=== PATIENT | male | born 1965 | race Caucasian/White ===

== ENCOUNTER 2021-09-18 15:02 | Inpatient (IN) | payer MEDICARE ==
[2021-09-18 15:54] LABS: #Basophils 0.1 10x3/uL (0.0-0.2); #Eosinphils 0.2 10x3/uL (0.0-0.5); #Monocytes 0.7 10x3/uL (0.0-1.1); #Neutrophils 7.8 10x3/uL (1.5-8.4); %Basophils 0.5 % (0.0-2.0); %Eosinophils 1.5 % (0.0-6.0); %Lymphocytes 16.4 % (18.0-47.0); %Monocytes 6.7 % (0.0-10.0); %Neutrophils 74.4 % (40.0-75.0); Hemoglobin 10.1 g/dL (13.5-17.5); Mean Corpuscular HGB CONC 31.2 g/dL (32.0-36.0); Mean Corpuscular Hemoglobin 26.4 pg (27.0-33.0); Mean Corpuscular Volume 84.8 fl (81.2-95.1); Mean Platelet Volume 9.3 fl (7.4-10.4); Platelet Count 307 10x3/uL (150-450); RBC Distribution Width 14.1 % (11.5-14.5); Red Blood Cell (RBC) Count 3.82 10x6/uL (4.32-5.72); White Blood Cell (WBC) Count 10.5 10x3/uL (3.5-10.5)
[2021-09-18 16:05] LABS: PTT 27.1 sec (22.0-33.0)
[2021-09-18 16:08] LABS: ALT (SGPT) 12 U/L (8-55); AST (SGOT) 10 U/L (5-34); Albumin 3.2 g/dL (3.5-5.0); Alkaline Phosphatase 84 U/L (40-110); Anion Gap 13 mmol/L (10-20); BUN (Urea Nitrogen) 31 mg/dL (8.4-25.7); Bilirubin, Total 0.4 mg/dL (0.2-1.2); Calc. Creatinine Clearance 0 mL/min (70-130); Carbon Dioxide 30 mmol/L (22-29); Chloride 94 mmol/L (98-107); Globulin 3.9 g/dL (2.4-3.5); Glucose 338 mg/dL (70-105); Potassium 4.5 mmol/L (3.5-5.1); Protein, Total 7.1 g/dL (6.0-8.3); Sodium 132 mmol/L (136-145)
[2021-09-18] MEDS ORDERED: Cefepime 2 GM VIAL ONE (18:58)
[2021-09-18] MEDS ORDERED: Acetaminophen 500 MG TAB ONE (18:58)
[2021-09-18] MEDS ORDERED: Dextrose 5% in Water 1,000 ML IV PRN (20:46)
[2021-09-18] MEDS ORDERED: Zolpidem Tartrate 5 MG TAB PO PRN (20:46)
[2021-09-18] MEDS ORDERED: Senokot S 8.6-50 MG TAB PO PRN (20:46)
[2021-09-18] MEDS ORDERED: Guaifenesin DM 100-10/5 ML UDCUP PO PRN (20:46)
[2021-09-18] MEDS ORDERED: Calcium Carbonate 500 MG ChewTAB PO PRN (20:46)
[2021-09-18] MEDS ORDERED: Dextrose 50% Abboject 50 ML SYRINGE SLOW IVP PRN (20:46)
[2021-09-18] MEDS ORDERED: Famotidine 20 MG TAB PO SCH (21:00)
[2021-09-18 23:44] VITALS: BMI 52.4
[2021-09-18 23:51] LABS: SARS-CoV-2 NAA Rapid Test Not Detected (NotDetected)
[2021-09-18] MEDS: HumaLOG 300 UNITS/3 ML VIAL SC PRN (23:56)
[2021-09-18] MEDS: Atorvastatin Calcium 40 MG TAB PO SCH (23:56)
[2021-09-18] MEDS: Gabapentin 300 MG CAP PO SCH (23:57)
[2021-09-18] MEDS: hydrALAZINE 10 MG TAB PO SCH (23:58)
[2021-09-18] MEDS: Loratadine 10 MG TAB PO SCH (23:58)
[2021-09-19] MEDS: Ondansetron PF 4 MG/2 ML Vial IVP PRN ×2 (00:23→17:34)
[2021-09-19] MEDS: traZODone HCl 50 MG TAB PO SCH ×2 (01:50→21:55)
[2021-09-19] MEDS: HumaLOG 300 UNITS/3 ML VIAL SC PRN ×3 (05:54→17:45)
[2021-09-19 06:31] LABS: #Basophils 0.1 10x3/uL (0.0-0.2); #Eosinphils 0.2 10x3/uL (0.0-0.5); #Monocytes 0.7 10x3/uL (0.0-1.1); #Neutrophils 6.1 10x3/uL (1.5-8.4); %Basophils 0.6 % (0.0-2.0); %Eosinophils 2.7 % (0.0-6.0); %Lymphocytes 17.3 % (18.0-47.0); %Monocytes 8.1 % (0.0-10.0); %Neutrophils 70.7 % (40.0-75.0); Hemoglobin 9.3 g/dL (13.5-17.5); Mean Corpuscular HGB CONC 30.7 g/dL (32.0-36.0); Mean Corpuscular Hemoglobin 26.4 pg (27.0-33.0); Mean Corpuscular Volume 86.1 fl (81.2-95.1); Mean Platelet Volume 9.6 fl (7.4-10.4); Platelet Count 295 10x3/uL (150-450); RBC Distribution Width 14.3 % (11.5-14.5); Red Blood Cell (RBC) Count 3.52 10x6/uL (4.32-5.72); White Blood Cell (WBC) Count 8.6 10x3/uL (3.5-10.5)
[2021-09-19 06:50] LABS: Anion Gap 13 mmol/L (10-20); BUN (Urea Nitrogen) 28 mg/dL (8.4-25.7); CRP (Inflammatory) 12.63 mg/dL (= or < 0.5); Calc. Creatinine Clearance 112 mL/min (70-130); Calcium 8.7 mg/dL (7.8-10.44); Carbon Dioxide 27 mmol/L (22-29); Chloride 99 mmol/L (98-107); Glucose 250 mg/dL (70-105); Potassium 4.4 mmol/L (3.5-5.1); Sodium 135 mmol/L (136-145)
[2021-09-19] MEDS ORDERED: Enoxaparin Sodium 30 MG/0.3 ML SYRINGE SC SCH (09:00)
[2021-09-19] MEDS ORDERED: Enoxaparin Sodium 40 MG/0.4 ML SYRINGE SC SCH (09:45)
[2021-09-19] MEDS: Aspirin 81 mg Enteric Coated Tablet PO SCH (10:19)
[2021-09-19] MEDS: Gabapentin 300 MG CAP PO SCH ×3 (10:19→21:55)
[2021-09-19] MEDS: Furosemide 40 MG TAB PO SCH (10:19)
[2021-09-19] MEDS: hydrALAZINE 10 MG TAB PO SCH ×3 (10:19→21:54)
[2021-09-19] MEDS: Lantus 1000 UNITS/10 ML VIAL SC SCH (10:21)
[2021-09-19 12:42] LABS: Hemoglobin A1c 9.8 % (4.0-6.0)
[2021-09-19] MEDS ORDERED: Sodium Chloride 0.9% 1,000 ML IV SCH (17:15)
[2021-09-19] MEDS ORDERED: Communication Order-Pharmacy FS SCH (17:15)
[2021-09-19] MEDS: Cefepime 2 GM in Sodium Chloride 0.9% 100 ML IVPB SCH ×2 (17:34→17:40)
[2021-09-19] MEDS: VANCOMYCIN 2 GRAM/400 ML BAG 2 GM in Premix Bag 1 BAG IVPB SCH (17:34)
[2021-09-19] MEDS: Atorvastatin Calcium 40 MG TAB PO SCH (21:54)
[2021-09-19] MEDS: Loratadine 10 MG TAB PO SCH (21:55)
[2021-09-19] MEDS: Famotidine 20 MG TAB PO SCH (21:56)
[2021-09-20 04:36] LABS: Anion Gap 10 mmol/L (10-20); BUN (Urea Nitrogen) 34 mg/dL (8.4-25.7); Calc. Creatinine Clearance 99 mL/min (70-130); Calcium 8.4 mg/dL (7.8-10.44); Carbon Dioxide 29 mmol/L (22-29); Cardiac Risk 5.4 (Less than 4.5); Chloride 100 mmol/L (98-107); Cholesterol 114 mg/dl (< 200 Desired); Glucose 242 mg/dL (70-105); HDL Cholesterol 21 mg/dL (>60 Neg Risk); LDL Cholesterol, Calculated 64 mg/dL; Phosphorus 3.4 mg/dL (2.3-4.7); Potassium 4.4 mmol/L (3.5-5.1); Sodium 135 mmol/L (136-145); Triglycerides 145 mg/dL (Less than 150)
[2021-09-20 04:41] LABS: #Eosinphils 0.3 10x3/uL (0.0-0.5); #Monocytes 0.9 10x3/uL (0.0-1.1); #Neutrophils 4.6 10x3/uL (1.5-8.4); %Basophils 0.5 % (0.0-2.0); %Monocytes 10.3 % (0.0-10.0); %Neutrophils 56.5 % (40.0-75.0); Hemoglobin 8.8 g/dL (13.5-17.5); Mean Corpuscular HGB CONC 30.4 g/dL (32.0-36.0); Mean Corpuscular Hemoglobin 26.5 pg (27.0-33.0); Mean Platelet Volume 9.5 fl (7.4-10.4); Platelet Count 263 10x3/uL (150-450); RBC Distribution Width 14.6 % (11.5-14.5); Red Blood Cell (RBC) Count 3.32 10x6/uL (4.32-5.72); White Blood Cell (WBC) Count 8.2 10x3/uL (3.5-10.5)
[2021-09-20] MEDS: hydrALAZINE 10 MG TAB PO SCH ×3 (06:32→21:59)
[2021-09-20] MEDS: Famotidine 20 MG TAB PO SCH ×2 (06:33→21:59)
[2021-09-20] MEDS: Gabapentin 300 MG CAP PO SCH ×3 (06:33→21:58)
[2021-09-20] MEDS: Aspirin 81 mg Enteric Coated Tablet PO SCH (06:33)
[2021-09-20] MEDS: Sodium Chloride 0.9% 1,000 ML IV SCH ×2 (07:42→09:25)
[2021-09-20] MEDS ORDERED: Enoxaparin Sodium 40 MG/0.4 ML SYRINGE SC SCH (09:00)
[2021-09-20] MEDS: Furosemide 40 MG TAB PO SCH (09:25)
[2021-09-20] MEDS: Lantus 1000 UNITS/10 ML VIAL SC SCH (09:25)
[2021-09-20] MEDS ORDERED: Nitroglycerin 50 MG/250 ML BOT 0 ML ONE (11:58)
[2021-09-20] MEDS ORDERED: Heparin 10,000 UNITS/ 10 ML VIAL ONE (11:58)
[2021-09-20] MEDS ORDERED: Bivalirudin 250 MG VIAL ONE ×2 (11:59→12:07)
[2021-09-20] MEDS ORDERED: Verapamil 5 MG/2 ML VIAL ONE (11:59)
[2021-09-20] MEDS ORDERED: Adenosine 6 MG/2 ML VIAL ONE (11:59)
[2021-09-20] MEDS ORDERED: Lidocaine 1% PF 5 ML VIAL ONE (12:01)
[2021-09-20] MEDS ORDERED: Midazolam HCl 5 mg/5 ml Vial ONE (12:02)
[2021-09-20] MEDS ORDERED: Sterile Water 0 ML ONE (12:02)
[2021-09-20] MEDS ORDERED: Sodium Chloride 0.9% 1,000 ML ONE (12:03)
[2021-09-20] MEDS ORDERED: Fentanyl 100 MCG/2 ML VIAL ONE (12:03)
[2021-09-20] MEDS ORDERED: Lidocaine 1% (PF) 30 ML VIAL ONE (13:28)
[2021-09-20] MEDS ORDERED: Sodium Chloride 0.9% 1,000 ML IV SCH (14:30)
[2021-09-20] MEDS: VANCOMYCIN 2 GRAM/400 ML BAG 2 GM in Premix Bag 1 BAG IVPB SCH (17:14)
[2021-09-20] MEDS: Cefepime 2 GM in Sodium Chloride 0.9% 100 ML IVPB SCH (17:14)
[2021-09-20 17:33] LABS: Vancomycin, Trough 18.3 ug/mL
[2021-09-20] MEDS: traZODone HCl 50 MG TAB PO SCH (21:58)
[2021-09-20] MEDS: Loratadine 10 MG TAB PO SCH (22:00)
[2021-09-20] MEDS: Atorvastatin Calcium 40 MG TAB PO SCH (22:00)
[2021-09-20] MEDS: HumaLOG 300 UNITS/3 ML VIAL SC PRN (22:00)
[2021-09-21 05:49] LABS: Anion Gap 12 mmol/L (10-20); BUN (Urea Nitrogen) 31 mg/dL (8.4-25.7); Calc. Creatinine Clearance 107 mL/min (70-130); Calcium 8.5 mg/dL (7.8-10.44); Carbon Dioxide 24 mmol/L (22-29); Chloride 104 mmol/L (98-107); Glucose 200 mg/dL (70-105); Phosphorus 2.9 mg/dL (2.3-4.7); Potassium 4.3 mmol/L (3.5-5.1); Sodium 136 mmol/L (136-145)
[2021-09-21 05:56] LABS: #Basophils 0.1 10x3/uL (0.0-0.2); #Eosinphils 0.3 10x3/uL (0.0-0.5); #Monocytes 0.7 10x3/uL (0.0-1.1); #Neutrophils 5.2 10x3/uL (1.5-8.4); %Basophils 0.6 % (0.0-2.0); %Eosinophils 3.3 % (0.0-6.0); %Lymphocytes 24.5 % (18.0-47.0); %Monocytes 7.9 % (0.0-10.0); %Neutrophils 63.1 % (40.0-75.0); Hemoglobin 9.1 g/dL (13.5-17.5); Mean Corpuscular HGB CONC 30.6 g/dL (32.0-36.0); Mean Corpuscular Hemoglobin 26.4 pg (27.0-33.0); Mean Corpuscular Volume 86.1 fl (81.2-95.1); Mean Platelet Volume 9.4 fl (7.4-10.4); Platelet Count 273 10x3/uL (150-450); RBC Distribution Width 14.6 % (11.5-14.5); Red Blood Cell (RBC) Count 3.45 10x6/uL (4.32-5.72); White Blood Cell (WBC) Count 8.2 10x3/uL (3.5-10.5)
[2021-09-21] MEDS ORDERED: Neomycin-Polymyxin 1 ML AMP ONE ×2 (07:18→08:01)
[2021-09-21] MEDS ORDERED: Bupivacaine PF 0.5% 30 ML VIAL ONE (07:18)
[2021-09-21] MEDS ORDERED: Midazolam HCl 2 mg/2 ml Vial ONE (07:47)
[2021-09-21] MEDS ORDERED: Fentanyl 100 MCG/2 ML VIAL ONE (07:47)
[2021-09-21] MEDS: hydrALAZINE 10 MG TAB PO SCH ×3 (09:28→20:23)
[2021-09-21] MEDS: Famotidine 20 MG TAB PO SCH ×2 (09:28→20:23)
[2021-09-21] MEDS: Gabapentin 300 MG CAP PO SCH ×3 (09:28→20:22)
[2021-09-21] MEDS: Furosemide 40 MG TAB PO SCH (09:28)
[2021-09-21] MEDS: Lantus 1000 UNITS/10 ML VIAL SC SCH ×2 (09:29→20:24)
[2021-09-21] MEDS: HYDROcodone/Acetaminophen 5/325 mg Tablet PO PRN ×2 (10:06→23:13)
[2021-09-21] MEDS ORDERED: Cefepime 2 GM VIAL ONE (18:12)
[2021-09-21] MEDS: Cefepime 2 GM in Sodium Chloride 0.9% 100 ML IVPB SCH (18:13)
[2021-09-21] MEDS: Ondansetron PF 4 MG/2 ML Vial IVP PRN (18:13)
[2021-09-21] MEDS: HumaLOG 300 UNITS/3 ML VIAL SC PRN ×2 (18:42→20:25)
[2021-09-21] MEDS: Atorvastatin Calcium 40 MG TAB PO SCH (20:23)
[2021-09-21] MEDS: Loratadine 10 MG TAB PO SCH (20:24)
[2021-09-21] MEDS: traZODone HCl 50 MG TAB PO SCH (20:27)
[2021-09-22] MEDS: HumaLOG 300 UNITS/3 ML VIAL SC PRN ×5 (00:49→21:36)
[2021-09-22] MEDS ORDERED: Vancomycin 1.5 GRAM/300 ML BAG 1.5 GM in Premix Bag 1 BAG IVPB SCH (06:00)
[2021-09-22 06:03] LABS: Anion Gap 12 mmol/L (10-20); BUN (Urea Nitrogen) 32 mg/dL (8.4-25.7); Calc. Creatinine Clearance 118 mL/min (70-130); Calcium 8.5 mg/dL (7.8-10.44); Carbon Dioxide 26 mmol/L (22-29); Chloride 102 mmol/L (98-107); Glucose 210 mg/dL (70-105); Phosphorus 3.1 mg/dL (2.3-4.7); Potassium 4.4 mmol/L (3.5-5.1); Sodium 136 mmol/L (136-145)
[2021-09-22] MEDS ORDERED: Enoxaparin Sodium 30 MG/0.3 ML SYRINGE SC SCH (09:00)
[2021-09-22] MEDS: Famotidine 20 MG TAB PO SCH ×2 (09:40→21:26)
[2021-09-22] MEDS: HYDROcodone/Acetaminophen 5/325 mg Tablet PO PRN (09:40)
[2021-09-22] MEDS: Furosemide 40 MG TAB PO SCH (09:40)
[2021-09-22] MEDS: Aspirin 81 mg Enteric Coated Tablet PO SCH (09:40)
[2021-09-22] MEDS: Gabapentin 300 MG CAP PO SCH ×3 (09:40→21:26)
[2021-09-22] MEDS: hydrALAZINE 10 MG TAB PO SCH ×3 (09:41→21:33)
[2021-09-22] MEDS: Lantus 1000 UNITS/10 ML VIAL SC SCH ×2 (10:43→21:35)
[2021-09-22] MEDS: Ondansetron PF 4 MG/2 ML Vial IVP PRN (17:27)
[2021-09-22] MEDS: Cefepime 2 GM in Sodium Chloride 0.9% 100 ML IVPB SCH (17:27)
[2021-09-22] MEDS: Atorvastatin Calcium 40 MG TAB PO SCH (21:25)
[2021-09-22] MEDS: Loratadine 10 MG TAB PO SCH (21:34)
[2021-09-22] MEDS: traZODone HCl 50 MG TAB PO SCH (21:34)
[2021-09-23] MEDS: HumaLOG 300 UNITS/3 ML VIAL SC PRN ×5 (01:22→20:58)
[2021-09-23 04:43] LABS: Anion Gap 13 mmol/L (10-20); BUN (Urea Nitrogen) 31 mg/dL (8.4-25.7); Calc. Creatinine Clearance 111 mL/min (70-130); Calcium 8.8 mg/dL (7.8-10.44); Carbon Dioxide 26 mmol/L (22-29); Chloride 101 mmol/L (98-107); Glucose 279 mg/dL (70-105); Phosphorus 3.6 mg/dL (2.3-4.7); Potassium 4.2 mmol/L (3.5-5.1); Sodium 136 mmol/L (136-145)
[2021-09-23] MEDS: Cefepime 2 GM in Sodium Chloride 0.9% 100 ML IVPB SCH ×2 (05:08→18:41)
[2021-09-23] MEDS: Amlodipine 5 MG TAB PO SCH (09:20)
[2021-09-23] MEDS: Enoxaparin Sodium 40 MG/0.4 ML SYRINGE SC SCH (09:20)
[2021-09-23] MEDS: Gabapentin 300 MG CAP PO SCH ×3 (09:20→20:55)
[2021-09-23] MEDS: Famotidine 20 MG TAB PO SCH ×2 (09:20→20:55)
[2021-09-23] MEDS: Aspirin 81 mg Enteric Coated Tablet PO SCH (09:20)
[2021-09-23] MEDS: hydrALAZINE 10 MG TAB PO SCH ×3 (09:21→20:55)
[2021-09-23] MEDS: Furosemide 40 MG TAB PO SCH (09:21)
[2021-09-23] MEDS: Lantus 1000 UNITS/10 ML VIAL SC SCH ×2 (09:21→20:57)
[2021-09-23] MEDS: HYDROcodone/Acetaminophen 5/325 mg Tablet PO PRN (09:21)
[2021-09-23 17:47] LABS: Vancomycin, Trough 8.4 ug/mL
[2021-09-23] MEDS: Atorvastatin Calcium 40 MG TAB PO SCH (20:55)
[2021-09-23] MEDS: traZODone HCl 50 MG TAB PO SCH (20:55)
[2021-09-23] MEDS: Loratadine 10 MG TAB PO SCH (20:56)
[2021-09-24] MEDS: HumaLOG 300 UNITS/3 ML VIAL SC PRN ×5 (01:10→22:18)
[2021-09-24] MEDS: HYDROcodone/Acetaminophen 5/325 mg Tablet PO PRN ×2 (01:18→09:24)
[2021-09-24] MEDS: Cefepime 2 GM in Sodium Chloride 0.9% 100 ML IVPB SCH ×2 (05:51→17:34)
[2021-09-24] MEDS: Amlodipine 5 MG TAB PO SCH (09:23)
[2021-09-24] MEDS: Famotidine 20 MG TAB PO SCH ×2 (09:23→22:21)
[2021-09-24] MEDS: Gabapentin 300 MG CAP PO SCH (09:23)
[2021-09-24] MEDS: hydrALAZINE 10 MG TAB PO SCH ×3 (09:23→22:20)
[2021-09-24] MEDS: Aspirin 81 mg Enteric Coated Tablet PO SCH (09:23)
[2021-09-24] MEDS: Enoxaparin Sodium 40 MG/0.4 ML SYRINGE SC SCH (09:23)
[2021-09-24] MEDS: Furosemide 40 MG TAB PO SCH (09:24)
[2021-09-24] MEDS: Lantus 1000 UNITS/10 ML VIAL SC SCH ×2 (09:24→22:19)
[2021-09-24] MEDS ORDERED: Gabapentin 300 MG CAP PO SCH (15:00)
[2021-09-24] MEDS: Gabapentin 400 MG CAP PO SCH ×2 (16:40→22:20)
[2021-09-24] MEDS: Atorvastatin Calcium 40 MG TAB PO SCH (22:21)
[2021-09-24] MEDS: Loratadine 10 MG TAB PO SCH (22:21)
[2021-09-24] MEDS: traZODone HCl 50 MG TAB PO SCH (23:01)
[2021-09-25 04:57] LABS: Anion Gap 12 mmol/L (10-20); BUN (Urea Nitrogen) 33 mg/dL (8.4-25.7); Calc. Creatinine Clearance 116 mL/min (70-130); Calcium 8.8 mg/dL (7.8-10.44); Carbon Dioxide 26 mmol/L (22-29); Chloride 100 mmol/L (98-107); Glucose 281 mg/dL (70-105); Potassium 4.1 mmol/L (3.5-5.1); Sodium 134 mmol/L (136-145)
[2021-09-25] MEDS: HumaLOG 300 UNITS/3 ML VIAL SC PRN ×4 (05:52→21:06)
[2021-09-25] MEDS: Cefepime 2 GM in Sodium Chloride 0.9% 100 ML IVPB SCH ×2 (05:53→19:18)
[2021-09-25] MEDS: Lantus 1000 UNITS/10 ML VIAL SC SCH ×2 (09:46→21:05)
[2021-09-25] MEDS: Enoxaparin Sodium 40 MG/0.4 ML SYRINGE SC SCH (09:46)
[2021-09-25] MEDS: Gabapentin 400 MG CAP PO SCH ×3 (09:47→21:04)
[2021-09-25] MEDS: Aspirin 81 mg Enteric Coated Tablet PO SCH (09:48)
[2021-09-25] MEDS: Famotidine 20 MG TAB PO SCH ×2 (09:48→21:03)
[2021-09-25] MEDS: Furosemide 40 MG TAB PO SCH (09:48)
[2021-09-25] MEDS: hydrALAZINE 10 MG TAB PO SCH ×3 (09:49→21:05)
[2021-09-25] MEDS: Amlodipine 5 MG TAB PO SCH (09:49)
[2021-09-25] MEDS: HYDROcodone/Acetaminophen 5/325 mg Tablet PO PRN (09:49)
[2021-09-25] MEDS: traZODone HCl 50 MG TAB PO SCH (21:03)
[2021-09-25] MEDS: Atorvastatin Calcium 40 MG TAB PO SCH (21:04)
[2021-09-25] MEDS: Acetaminophen 325 MG TAB PO PRN (21:13)
[2021-09-25] MEDS: Loratadine 10 MG TAB PO SCH (21:13)
[2021-09-26] MEDS: Cefepime 2 GM in Sodium Chloride 0.9% 100 ML IVPB SCH ×3 (04:42→16:47)
[2021-09-26] MEDS: HumaLOG 300 UNITS/3 ML VIAL SC PRN ×4 (06:12→20:44)
[2021-09-26] MEDS: Lantus 1000 UNITS/10 ML VIAL SC SCH ×2 (09:16→20:42)
[2021-09-26] MEDS: Enoxaparin Sodium 40 MG/0.4 ML SYRINGE SC SCH (09:16)
[2021-09-26] MEDS: Gabapentin 400 MG CAP PO SCH ×3 (09:16→20:33)
[2021-09-26] MEDS: Aspirin 81 mg Enteric Coated Tablet PO SCH (09:17)
[2021-09-26] MEDS: Famotidine 20 MG TAB PO SCH ×2 (09:17→20:33)
[2021-09-26] MEDS: Amlodipine 5 MG TAB PO SCH (09:17)
[2021-09-26] MEDS: hydrALAZINE 10 MG TAB PO SCH ×3 (09:17→20:40)
[2021-09-26] MEDS: HYDROcodone/Acetaminophen 5/325 mg Tablet PO PRN (09:17)
[2021-09-26] MEDS: Furosemide 40 MG TAB PO SCH (09:18)
[2021-09-26 10:18] LABS: Anion Gap 16 mmol/L (10-20); BUN (Urea Nitrogen) 36 mg/dL (8.4-25.7); Calc. Creatinine Clearance 102 mL/min (70-130); Calcium 8.9 mg/dL (7.8-10.44); Carbon Dioxide 24 mmol/L (22-29); Chloride 100 mmol/L (98-107); Glucose 448 mg/dL (70-105); Potassium 5.2 mmol/L (3.5-5.1); Sodium 135 mmol/L (136-145)
[2021-09-26] MEDS ORDERED: Dextrose 50% Abboject 50 ML SYRINGE SLOW IVP PRN (16:41)
[2021-09-26] MEDS ORDERED: Dextrose 5% in Water 1,000 ML IV PRN (16:41)
[2021-09-26 18:15] LABS: SARS-CoV-2 PCR by NAA Not Detected (NotDetected)
[2021-09-26] MEDS: traZODone HCl 50 MG TAB PO SCH (20:40)
[2021-09-26] MEDS: Loratadine 10 MG TAB PO SCH (20:40)
[2021-09-26] MEDS: Atorvastatin Calcium 40 MG TAB PO SCH (20:40)
[2021-09-27] MEDS: HumaLOG 300 UNITS/3 ML VIAL SC PRN ×6 (01:20→21:25)
[2021-09-27 05:07] LABS: Anion Gap 12 mmol/L (10-20); BUN (Urea Nitrogen) 35 mg/dL (8.4-25.7); Calc. Creatinine Clearance 117 mL/min (70-130); Calcium 8.7 mg/dL (7.8-10.44); Carbon Dioxide 27 mmol/L (22-29); Chloride 102 mmol/L (98-107); Glucose 214 mg/dL (70-105); Sodium 137 mmol/L (136-145)
[2021-09-27] MEDS: Amlodipine 10 MG TAB PO SCH (08:51)
[2021-09-27] MEDS: Enoxaparin Sodium 40 MG/0.4 ML SYRINGE SC SCH (08:51)
[2021-09-27] MEDS: Aspirin 81 mg Enteric Coated Tablet PO SCH (08:52)
[2021-09-27] MEDS: Gabapentin 400 MG CAP PO SCH ×3 (08:52→21:14)
[2021-09-27] MEDS: HYDROcodone/Acetaminophen 5/325 mg Tablet PO PRN (08:52)
[2021-09-27] MEDS: Furosemide 40 MG TAB PO SCH (08:53)
[2021-09-27] MEDS: Lantus 1000 UNITS/10 ML VIAL SC SCH ×2 (08:53→21:18)
[2021-09-27] MEDS: Famotidine 20 MG TAB PO SCH ×2 (08:53→21:16)
[2021-09-27] MEDS: hydrALAZINE 10 MG TAB PO SCH ×3 (08:53→21:13)
[2021-09-27] MEDS: Cefepime 2 GM in Sodium Chloride 0.9% 100 ML IVPB SCH (17:25)
[2021-09-27] MEDS: Atorvastatin Calcium 40 MG TAB PO SCH (21:14)
[2021-09-27] MEDS: Loratadine 10 MG TAB PO SCH (21:16)
[2021-09-27] MEDS: traZODone HCl 50 MG TAB PO SCH (21:16)
[2021-09-27] MEDS: Amoxicillin/Potassium Clav 875 MG TAB PO SCH (21:16)
[2021-09-28] MEDS: Acetaminophen 325 MG TAB PO PRN (00:51)
[2021-09-28] MEDS: HumaLOG 300 UNITS/3 ML VIAL SC PRN ×2 (00:56→05:31)
[2021-09-28] MEDS: hydrALAZINE 10 MG TAB PO SCH (09:59)
[2021-09-28] MEDS: HYDROcodone/Acetaminophen 5/325 mg Tablet PO PRN (09:59)
[2021-09-28] MEDS: Furosemide 40 MG TAB PO SCH (09:59)
[2021-09-28] MEDS: Lantus 1000 UNITS/10 ML VIAL SC SCH (09:59)
[2021-09-28] MEDS: Enoxaparin Sodium 40 MG/0.4 ML SYRINGE SC SCH (09:59)
[2021-09-28] MEDS: Amlodipine 10 MG TAB PO SCH (09:59)
[2021-09-28] MEDS: Gabapentin 400 MG CAP PO SCH (10:00)
[2021-09-28] MEDS: Famotidine 20 MG TAB PO SCH (10:00)
[2021-09-28] MEDS: Amoxicillin/Potassium Clav 875 MG TAB PO SCH (10:00)
[2021-09-28] MEDS: Aspirin 81 mg Enteric Coated Tablet PO SCH (10:00)
[2021-09-28 13:08] VITALS: BP 137/64; TEMP 96.6
== END 2021-09-28 15:36 | disposition home or self-care (01) | DRG 629 ==
LOC: CSHERS 15:02 → CSHERHOLD 19:48 → CSHTELE 21:59
PROVIDERS: ADMIT Student in an Organized Health Care Education/Training Program; ATTEND Family Medicine
PROC: B41D1ZZ Fluoroscopy of Aorta and Bilateral Lower Extremity Arteries using Low Osmolar Contrast (ICD-10-PCS; principal; 2021-09-20)
PROC: 0QBP0ZZ Excision of Left Metatarsal, Open Approach (ICD-10-PCS; 2021-09-21)
PROC: 0QBP0ZX Excision of Left Metatarsal, Open Approach, Diagnostic (ICD-10-PCS; 2021-09-21)
DX: E11.69 Type 2 diabetes mellitus with other specified complication (principal); M86.8X7 Other osteomyelitis, ankle and foot; L03.116 Cellulitis of left lower limb; E11.52 Type 2 diabetes mellitus with diabetic peripheral angiopathy with gangrene; I96 Gangrene, not elsewhere classified; Z68.43 Body mass index [BMI] 50.0-59.9, adult; Z20.822 Contact with and (suspected) exposure to COVID-19; E11.628 Type 2 diabetes mellitus with other skin complications; D63.1 Anemia in chronic kidney disease; E11.65 Type 2 diabetes mellitus with hyperglycemia; E78.2 Mixed hyperlipidemia; I10 Essential (primary) hypertension; E11.621 Type 2 diabetes mellitus with foot ulcer; G47.33 Obstructive sleep apnea (adult) (pediatric); L97.529 Non-pressure chronic ulcer of other part of left foot with unspecified severity; I87.2 Venous insufficiency (chronic) (peripheral); N17.9 Acute kidney failure, unspecified; E11.22 Type 2 diabetes mellitus with diabetic chronic kidney disease; E66.01 Morbid (severe) obesity due to excess calories; N18.4 Chronic kidney disease, stage 4 (severe); E11.40 Type 2 diabetes mellitus with diabetic neuropathy, unspecified; E87.5 Hyperkalemia; Z88.8 Allergy status to other drugs, medicaments and biological substances; Z79.82 Long term (current) use of aspirin; Z89.511 Acquired absence of right leg below knee; Z79.899 Other long term (current) drug therapy; Z98.890 Other specified postprocedural states; Z79.4 Long term (current) use of insulin
CPT/HCPCS: 36140; 36246; 36415; 36416; 75716; 75736; 76000; 80048; 80053; 80061; 80202; 83036; 83605; 83735; 84100; 85025; 85610; 85652; 85730; 86140; 86850; 86900; 86901; 87040; 87070; 87077; 87186; 87205; 88304; 88311; 93306; 93923; 94760; 96365; 96366; 96368; 96375; 99152; 99153; C1713; J0153; J0583; J0692; J1644; J1650; J1815; J2001; J2250; J2405; J3010; J3370; J3490; J7050; S0020; U0002; U0003; U0005

== ENCOUNTER 2022-02-25 17:22 | Inpatient (IN) | payer MEDICARE ==
[2022-02-25 18:13] VITALS: BMI 49.3
[2022-02-25] MEDS ORDERED: Acetaminophen 325 MG TAB PO PRN (19:39)
[2022-02-25] MEDS ORDERED: Ondansetron PF 4 MG/2 ML Vial IVP PRN (19:39)
[2022-02-25] MEDS ORDERED: Calcium Carbonate 500 MG ChewTAB PO PRN (19:39)
[2022-02-25] MEDS ORDERED: Dextrose 50% Abboject 50 ML SYRINGE SLOW IVP PRN (19:39)
[2022-02-25] MEDS ORDERED: Dextrose 5% in Water 1,000 ML IV PRN (19:39)
[2022-02-25] MEDS ORDERED: Guaifenesin DM 100-10/5 ML UDCUP PO PRN (19:39)
[2022-02-25] MEDS ORDERED: Sodium Chloride 0.9% 500 ML IV SCH (19:45)
[2022-02-25] MEDS ORDERED: Morphine 2 MG/ML VIAL SLOW IVP PRN (19:57)
[2022-02-25] MEDS: hydrALAZINE 10 MG TAB PO SCH (21:37)
[2022-02-25] MEDS: Famotidine 20 MG TAB PO SCH (21:37)
[2022-02-25] MEDS: Atorvastatin Calcium 40 MG TAB PO SCH (21:37)
[2022-02-25] MEDS: traZODone HCl 50 MG TAB PO SCH (21:37)
[2022-02-25] MEDS: Gabapentin 300 MG CAP PO SCH (21:38)
[2022-02-25] MEDS: HYDROcodone/Acetaminophen 5/325 mg Tablet PO PRN (21:39)
[2022-02-25] MEDS: Lantus 1000 UNITS/10 ML VIAL SC SCH (21:45)
[2022-02-26] MEDS ORDERED: Cefepime 1 GM in Sodium Chloride 0.9% 100 ML IVPB SCH (03:00)
[2022-02-26] MEDS: HumaLOG 300 UNITS/3 ML VIAL SC PRN ×2 (05:29→16:45)
[2022-02-26 06:13] LABS: #Basophils 0.1 10x3/uL (0.0-0.2); #Eosinphils 0.2 10x3/uL (0.0-0.5); #Monocytes 0.6 10x3/uL (0.0-1.1); #Neutrophils 4.8 10x3/uL (1.5-8.4); %Basophils 0.7 % (0.0-2.0); %Lymphocytes 26.7 % (18.0-47.0); %Monocytes 7.2 % (0.0-10.0); Hemoglobin 9.1 g/dL (13.5-17.5); Mean Corpuscular HGB CONC 30.8 g/dL (32.0-36.0); Mean Platelet Volume 9.5 fl (7.4-10.4); Platelet Count 293 10x3/uL (150-450); RBC Distribution Width 16.8 % (11.5-14.5); Red Blood Cell (RBC) Count 3.64 10x6/uL (4.32-5.72); White Blood Cell (WBC) Count 7.7 10x3/uL (3.5-10.5)
[2022-02-26 06:44] LABS: Anion Gap 13 mmol/L (10-20); BUN (Urea Nitrogen) 42 mg/dL (8.4-25.7); Calc. Creatinine Clearance 130 mL/min (70-130); Calcium 8.9 mg/dL (7.8-10.44); Carbon Dioxide 26 mmol/L (22-29); Chloride 107 mmol/L (98-107); Glucose 174 mg/dL (70-105); Potassium 3.8 mmol/L (3.5-5.1); Sodium 142 mmol/L (136-145)
[2022-02-26] MEDS: Amlodipine 5 MG TAB PO SCH (09:18)
[2022-02-26] MEDS: Aspirin 81 mg Enteric Coated Tablet PO SCH (09:18)
[2022-02-26] MEDS: Furosemide 40 MG TAB PO SCH (09:18)
[2022-02-26] MEDS: Calcitriol 0.25 MCG CAP PO SCH (09:18)
[2022-02-26] MEDS: Gabapentin 300 MG CAP PO SCH ×3 (09:18→21:21)
[2022-02-26] MEDS: Enoxaparin Sodium 40 MG/0.4 ML SYRINGE SC SCH (09:18)
[2022-02-26] MEDS: HYDROcodone/Acetaminophen 5/325 mg Tablet PO PRN ×2 (09:18→21:21)
[2022-02-26] MEDS: hydrALAZINE 10 MG TAB PO SCH ×3 (09:18→21:20)
[2022-02-26 13:03] LABS: Hemoglobin A1c 8.2 % (4.0-6.0)
[2022-02-26] MEDS: Cefepime 2 GM in Sodium Chloride 0.9% 100 ML IVPB SCH (15:21)
[2022-02-26] MEDS: VANCOMYCIN 1.75 GM/350 ML BAG 1.75 GM in Premix Bag 1 BAG IVPB SCH (16:45)
[2022-02-26] MEDS: Atorvastatin Calcium 40 MG TAB PO SCH (21:20)
[2022-02-26] MEDS: traZODone HCl 50 MG TAB PO SCH (21:21)
[2022-02-26] MEDS: Famotidine 20 MG TAB PO SCH (21:21)
[2022-02-26] MEDS: Lantus 1000 UNITS/10 ML VIAL SC SCH (21:22)
[2022-02-27] MEDS: Cefepime 2 GM in Sodium Chloride 0.9% 100 ML IVPB SCH ×2 (02:34→17:02)
[2022-02-27 05:02] LABS: #Eosinphils 0.2 10x3/uL (0.0-0.5); #Monocytes 0.6 10x3/uL (0.0-1.1); #Neutrophils 4.1 10x3/uL (1.5-8.4); %Basophils 0.5 % (0.0-2.0); %Eosinophils 3.1 % (0.0-6.0); %Lymphocytes 32.8 % (18.0-47.0); %Monocytes 7.4 % (0.0-10.0); %Neutrophils 55.8 % (40.0-75.0); Hemoglobin 8.6 g/dL (13.5-17.5); Mean Corpuscular HGB CONC 30.9 g/dL (32.0-36.0); Mean Corpuscular Hemoglobin 24.9 pg (27.0-33.0); Mean Corpuscular Volume 80.3 fl (81.2-95.1); Mean Platelet Volume 9.2 fl (7.4-10.4); Platelet Count 264 10x3/uL (150-450); RBC Distribution Width 16.8 % (11.5-14.5); Red Blood Cell (RBC) Count 3.46 10x6/uL (4.32-5.72); White Blood Cell (WBC) Count 7.4 10x3/uL (3.5-10.5)
[2022-02-27 05:11] LABS: Anion Gap 12 mmol/L (10-20); BUN (Urea Nitrogen) 36 mg/dL (8.4-25.7); CRP (Inflammatory) 4.26 mg/dL (= or < 0.5); Calc. Creatinine Clearance 136 mL/min (70-130); Calcium 8.7 mg/dL (7.8-10.44); Carbon Dioxide 25 mmol/L (22-29); Chloride 107 mmol/L (98-107); Glucose 143 mg/dL (70-105); Potassium 3.5 mmol/L (3.5-5.1); Sodium 140 mmol/L (136-145)
[2022-02-27] MEDS: Furosemide 40 MG TAB PO SCH (09:22)
[2022-02-27] MEDS: hydrALAZINE 10 MG TAB PO SCH ×3 (09:22→20:54)
[2022-02-27] MEDS: Calcitriol 0.25 MCG CAP PO SCH (09:22)
[2022-02-27] MEDS: Enoxaparin Sodium 40 MG/0.4 ML SYRINGE SC SCH (09:22)
[2022-02-27] MEDS: Gabapentin 300 MG CAP PO SCH ×3 (09:22→20:55)
[2022-02-27] MEDS: Aspirin 81 mg Enteric Coated Tablet PO SCH (09:22)
[2022-02-27] MEDS: Amlodipine 5 MG TAB PO SCH (09:22)
[2022-02-27 15:31] LABS: Vancomycin, Trough 4.1 ug/mL
[2022-02-27] MEDS: VANCOMYCIN 1.75 GM/350 ML BAG 1.75 GM in Premix Bag 1 BAG IVPB SCH ×2 (16:59→17:05)
[2022-02-27] MEDS: HumaLOG 300 UNITS/3 ML VIAL SC PRN (18:11)
[2022-02-27] MEDS: HYDROcodone/Acetaminophen 5/325 mg Tablet PO PRN (20:53)
[2022-02-27] MEDS: Atorvastatin Calcium 40 MG TAB PO SCH (20:54)
[2022-02-27] MEDS: Famotidine 20 MG TAB PO SCH (20:54)
[2022-02-27] MEDS: Lantus 1000 UNITS/10 ML VIAL SC SCH (20:56)
[2022-02-27] MEDS: traZODone HCl 50 MG TAB PO SCH (22:06)
[2022-02-28] MEDS: Cefepime 2 GM in Sodium Chloride 0.9% 100 ML IVPB SCH ×2 (04:05→15:54)
[2022-02-28] MEDS: VANCOMYCIN 1.75 GM/350 ML BAG 1.75 GM in Premix Bag 1 BAG IVPB SCH ×2 (05:01→17:45)
[2022-02-28] MEDS ORDERED: Bupivacaine PF 0.5% 30 ML VIAL ONE (09:59)
[2022-02-28] MEDS ORDERED: Neomycin-Polymyxin 1 ML AMP ONE (10:00)
[2022-02-28] MEDS: HYDROcodone/Acetaminophen 5/325 mg Tablet PO PRN ×3 (10:03→20:43)
[2022-02-28] MEDS: Aspirin 81 mg Enteric Coated Tablet PO SCH (10:24)
[2022-02-28] MEDS: Amlodipine 5 MG TAB PO SCH (10:24)
[2022-02-28] MEDS: Furosemide 40 MG TAB PO SCH (10:25)
[2022-02-28] MEDS: Calcitriol 0.25 MCG CAP PO SCH (10:25)
[2022-02-28] MEDS: hydrALAZINE 10 MG TAB PO SCH ×3 (10:25→20:41)
[2022-02-28] MEDS: Gabapentin 300 MG CAP PO SCH ×3 (10:25→20:41)
[2022-02-28] MEDS: Enoxaparin Sodium 40 MG/0.4 ML SYRINGE SC SCH (10:25)
[2022-02-28] MEDS ORDERED: PROPOFOL 0 ML ONE (12:05)
[2022-02-28] MEDS ORDERED: Fentanyl 100 MCG/2 ML VIAL ONE (12:05)
[2022-02-28] MEDS ORDERED: Lidocaine 1% PF 5 ML VIAL ONE (12:07)
[2022-02-28] MEDS ORDERED: Ondansetron PF 4 MG/2 ML Vial ONE (12:09)
[2022-02-28] MEDS ORDERED: PROPOFOL 20 ML ONE (12:28)
[2022-02-28] MEDS ORDERED: ePHEDrine Sulfate 50 MG/10 ML VIAL ONE (12:44)
[2022-02-28] MEDS: Atorvastatin Calcium 40 MG TAB PO SCH (20:40)
[2022-02-28] MEDS: Famotidine 20 MG TAB PO SCH (20:42)
[2022-02-28] MEDS: traZODone HCl 50 MG TAB PO SCH (20:42)
[2022-02-28] MEDS: Lantus 1000 UNITS/10 ML VIAL SC SCH (20:43)
[2022-03-01] MEDS: Cefepime 2 GM in Sodium Chloride 0.9% 100 ML IVPB SCH ×2 (03:41→15:38)
[2022-03-01] MEDS: VANCOMYCIN 1.75 GM/350 ML BAG 1.75 GM in Premix Bag 1 BAG IVPB SCH (04:48)
[2022-03-01] MEDS: HYDROcodone/Acetaminophen 5/325 mg Tablet PO PRN ×2 (05:03→22:06)
[2022-03-01 05:34] LABS: #Eosinphils 0.3 10x3/uL (0.0-0.5); #Monocytes 0.6 10x3/uL (0.0-1.1); #Neutrophils 6.2 10x3/uL (1.5-8.4); %Basophils 0.4 % (0.0-2.0); %Eosinophils 2.8 % (0.0-6.0); %Lymphocytes 22.3 % (18.0-47.0); %Monocytes 6.3 % (0.0-10.0); %Neutrophils 67.9 % (40.0-75.0); Hemoglobin 9.3 g/dL (13.5-17.5); Mean Corpuscular HGB CONC 31.3 g/dL (32.0-36.0); Mean Corpuscular Volume 79.8 fl (81.2-95.1); Mean Platelet Volume 9.9 fl (7.4-10.4); Platelet Count 269 10x3/uL (150-450); RBC Distribution Width 16.8 % (11.5-14.5); Red Blood Cell (RBC) Count 3.72 10x6/uL (4.32-5.72); White Blood Cell (WBC) Count 9.1 10x3/uL (3.5-10.5)
[2022-03-01 05:52] LABS: Anion Gap 15 mmol/L (10-20); BUN (Urea Nitrogen) 32 mg/dL (8.4-25.7); CRP (Inflammatory) 3.79 mg/dL (= or < 0.5); Calc. Creatinine Clearance 128 mL/min (70-130); Calcium 8.5 mg/dL (7.8-10.44); Carbon Dioxide 25 mmol/L (22-29); Chloride 104 mmol/L (98-107); Glucose 137 mg/dL (70-105); Sodium 140 mmol/L (136-145)
[2022-03-01 06:02] LABS: Vancomycin, Trough 35.6 ug/mL
[2022-03-01] MEDS: Calcitriol 0.25 MCG CAP PO SCH (09:46)
[2022-03-01] MEDS: Aspirin 81 mg Enteric Coated Tablet PO SCH (09:46)
[2022-03-01] MEDS: Gabapentin 300 MG CAP PO SCH ×3 (09:46→22:07)
[2022-03-01] MEDS: Amlodipine 5 MG TAB PO SCH (09:46)
[2022-03-01] MEDS: Enoxaparin Sodium 40 MG/0.4 ML SYRINGE SC SCH (09:46)
[2022-03-01] MEDS: Furosemide 40 MG TAB PO SCH (09:46)
[2022-03-01] MEDS: hydrALAZINE 10 MG TAB PO SCH ×3 (09:47→22:07)
[2022-03-01] MEDS: Atorvastatin Calcium 40 MG TAB PO SCH (22:05)
[2022-03-01] MEDS: Famotidine 20 MG TAB PO SCH (22:05)
[2022-03-01] MEDS: traZODone HCl 50 MG TAB PO SCH (22:07)
[2022-03-01] MEDS: Lantus 1000 UNITS/10 ML VIAL SC SCH (22:40)
[2022-03-02] MEDS: Cefepime 2 GM in Sodium Chloride 0.9% 100 ML IVPB SCH ×2 (03:51→15:32)
[2022-03-02 05:34] LABS: Vancomycin, Random 25.3 ug/mL (See Comment)
[2022-03-02] MEDS: HumaLOG 300 UNITS/3 ML VIAL SC PRN (06:41)
[2022-03-02] MEDS: Amlodipine 5 MG TAB PO SCH (10:21)
[2022-03-02] MEDS: Aspirin 81 mg Enteric Coated Tablet PO SCH (10:22)
[2022-03-02] MEDS: Furosemide 40 MG TAB PO SCH (10:22)
[2022-03-02] MEDS: hydrALAZINE 10 MG TAB PO SCH ×3 (10:22→21:53)
[2022-03-02] MEDS: Enoxaparin Sodium 40 MG/0.4 ML SYRINGE SC SCH (10:22)
[2022-03-02] MEDS: Calcitriol 0.25 MCG CAP PO SCH (10:22)
[2022-03-02] MEDS: Gabapentin 300 MG CAP PO SCH ×3 (10:22→21:53)
[2022-03-02] MEDS: HYDROcodone/Acetaminophen 5/325 mg Tablet PO PRN ×2 (12:02→23:47)
[2022-03-02] MEDS: Senokot S 8.6-50 MG TAB PO PRN (15:33)
[2022-03-02 18:12] LABS: Vancomycin, Random 19.4 ug/mL (See Comment)
[2022-03-02] MEDS ORDERED: Polyethylene Glycol 3350 17 GM Packet PO SCH (19:30)
[2022-03-02] MEDS: traZODone HCl 50 MG TAB PO SCH (21:52)
[2022-03-02] MEDS: Lantus 1000 UNITS/10 ML VIAL SC SCH (21:52)
[2022-03-02] MEDS: Atorvastatin Calcium 40 MG TAB PO SCH (21:53)
[2022-03-02] MEDS: Famotidine 20 MG TAB PO SCH (21:53)
[2022-03-03] MEDS: Cefepime 2 GM in Sodium Chloride 0.9% 100 ML IVPB SCH ×2 (03:37→16:23)
[2022-03-03 05:07] LABS: #Eosinphils 0.3 10x3/uL (0.0-0.5); #Monocytes 0.5 10x3/uL (0.0-1.1); #Neutrophils 5.3 10x3/uL (1.5-8.4); %Basophils 0.5 % (0.0-2.0); %Eosinophils 3.5 % (0.0-6.0); %Lymphocytes 24.4 % (18.0-47.0); %Monocytes 6.4 % (0.0-10.0); %Neutrophils 64.8 % (40.0-75.0); Hemoglobin 9.1 g/dL (13.5-17.5); Mean Corpuscular HGB CONC 31.5 g/dL (32.0-36.0); Mean Corpuscular Hemoglobin 24.7 pg (27.0-33.0); Mean Corpuscular Volume 78.5 fl (81.2-95.1); Mean Platelet Volume 9.8 fl (7.4-10.4); Platelet Count 211 10x3/uL (150-450); RBC Distribution Width 16.4 % (11.5-14.5); Red Blood Cell (RBC) Count 3.68 10x6/uL (4.32-5.72); White Blood Cell (WBC) Count 8.1 10x3/uL (3.5-10.5)
[2022-03-03 05:20] LABS: Anion Gap 13 mmol/L (10-20); BUN (Urea Nitrogen) 33 mg/dL (8.4-25.7); Calc. Creatinine Clearance 123 mL/min (70-130); Calcium 8.4 mg/dL (7.8-10.44); Carbon Dioxide 25 mmol/L (22-29); Chloride 103 mmol/L (98-107); Glucose 225 mg/dL (70-105); Potassium 3.7 mmol/L (3.5-5.1); Sodium 137 mmol/L (136-145)
[2022-03-03 06:15] LABS: Vancomycin, Random 16.2 ug/mL (See Comment)
[2022-03-03] MEDS: HumaLOG 300 UNITS/3 ML VIAL SC PRN (06:43)
[2022-03-03] MEDS ORDERED: VANCOMYCIN 1.75 GM/350 ML BAG 1.75 GM in Premix Bag 1 BAG IVPB SCH (06:45)
[2022-03-03] MEDS: Enoxaparin Sodium 40 MG/0.4 ML SYRINGE SC SCH (09:11)
[2022-03-03] MEDS: Amlodipine 5 MG TAB PO SCH (09:11)
[2022-03-03] MEDS: Aspirin 81 mg Enteric Coated Tablet PO SCH (09:11)
[2022-03-03] MEDS: VANCOMYCIN 1.75 GM/350 ML BAG 1.75 GM in Premix Bag 1 BAG IVPB SCH (09:11)
[2022-03-03] MEDS: Calcitriol 0.25 MCG CAP PO SCH (09:11)
[2022-03-03] MEDS: hydrALAZINE 10 MG TAB PO SCH ×3 (09:12→21:35)
[2022-03-03] MEDS: Polyethylene Glycol 3350 17 GM Packet PO SCH (09:12)
[2022-03-03] MEDS: Gabapentin 300 MG CAP PO SCH ×3 (09:12→21:36)
[2022-03-03] MEDS: Furosemide 40 MG TAB PO SCH (09:12)
[2022-03-03] MEDS: traZODone HCl 50 MG TAB PO SCH (21:35)
[2022-03-03] MEDS: Famotidine 20 MG TAB PO SCH (21:37)
[2022-03-03] MEDS: Atorvastatin Calcium 40 MG TAB PO SCH (21:37)
[2022-03-03] MEDS: HYDROcodone/Acetaminophen 5/325 mg Tablet PO PRN (21:37)
[2022-03-03] MEDS: Senokot S 8.6-50 MG TAB PO PRN (21:43)
[2022-03-03] MEDS: Lantus 1000 UNITS/10 ML VIAL SC SCH (21:44)
[2022-03-04] MEDS: Cefepime 2 GM in Sodium Chloride 0.9% 100 ML IVPB SCH ×2 (03:32→17:06)
[2022-03-04] MEDS: Calcitriol 0.25 MCG CAP PO SCH (11:13)
[2022-03-04] MEDS: Polyethylene Glycol 3350 17 GM Packet PO SCH (11:13)
[2022-03-04] MEDS: Aspirin 81 mg Enteric Coated Tablet PO SCH (11:13)
[2022-03-04] MEDS: Enoxaparin Sodium 40 MG/0.4 ML SYRINGE SC SCH (11:13)
[2022-03-04] MEDS: hydrALAZINE 10 MG TAB PO SCH ×3 (11:14→20:56)
[2022-03-04] MEDS: Amlodipine 5 MG TAB PO SCH (11:14)
[2022-03-04] MEDS: Gabapentin 300 MG CAP PO SCH ×3 (11:14→20:55)
[2022-03-04] MEDS: Furosemide 40 MG TAB PO SCH (11:15)
[2022-03-04] MEDS: VANCOMYCIN 1.75 GM/350 ML BAG 1.75 GM in Premix Bag 1 BAG IVPB SCH (11:15)
[2022-03-04] MEDS: HumaLOG 300 UNITS/3 ML VIAL SC PRN ×3 (12:38→20:57)
[2022-03-04] MEDS: HYDROcodone/Acetaminophen 5/325 mg Tablet PO PRN (17:11)
[2022-03-04] MEDS: traZODone HCl 50 MG TAB PO SCH (20:54)
[2022-03-04] MEDS: Atorvastatin Calcium 40 MG TAB PO SCH (20:54)
[2022-03-04] MEDS: Famotidine 20 MG TAB PO SCH (20:56)
[2022-03-04] MEDS: Lantus 1000 UNITS/10 ML VIAL SC SCH (20:57)
[2022-03-05] MEDS: Cefepime 2 GM in Sodium Chloride 0.9% 100 ML IVPB SCH ×2 (03:26→15:50)
[2022-03-05] MEDS ORDERED: Cefepime 2 GM VIAL ONE (03:26)
[2022-03-05 04:40] LABS: SARS-CoV-2 NAA Rapid Test Not Detected (NotDetected)
[2022-03-05] MEDS: HumaLOG 300 UNITS/3 ML VIAL SC PRN ×4 (06:33→21:00)
[2022-03-05 07:29] LABS: Vancomycin, Trough 21.6 ug/mL
[2022-03-05] MEDS: VANCOMYCIN 1.75 GM/350 ML BAG 1.75 GM in Premix Bag 1 BAG IVPB SCH (09:55)
[2022-03-05] MEDS: Enoxaparin Sodium 40 MG/0.4 ML SYRINGE SC SCH (09:56)
[2022-03-05] MEDS: Gabapentin 300 MG CAP PO SCH ×3 (09:56→20:57)
[2022-03-05] MEDS: Polyethylene Glycol 3350 17 GM Packet PO SCH (09:56)
[2022-03-05] MEDS: hydrALAZINE 10 MG TAB PO SCH ×3 (09:57→20:59)
[2022-03-05] MEDS: Aspirin 81 mg Enteric Coated Tablet PO SCH (09:57)
[2022-03-05] MEDS: Furosemide 40 MG TAB PO SCH (09:58)
[2022-03-05] MEDS: Amlodipine 5 MG TAB PO SCH (09:58)
[2022-03-05] MEDS: Calcitriol 0.25 MCG CAP PO SCH (09:58)
[2022-03-05] MEDS: Famotidine 20 MG TAB PO SCH (20:57)
[2022-03-05] MEDS: traZODone HCl 50 MG TAB PO SCH (20:57)
[2022-03-05] MEDS: HYDROcodone/Acetaminophen 5/325 mg Tablet PO PRN (20:58)
[2022-03-05] MEDS: Atorvastatin Calcium 40 MG TAB PO SCH (20:59)
[2022-03-05] MEDS: Lantus 1000 UNITS/10 ML VIAL SC SCH (21:00)
[2022-03-06] MEDS: Cefepime 2 GM in Sodium Chloride 0.9% 100 ML IVPB SCH ×2 (03:52→15:32)
[2022-03-06] MEDS: HumaLOG 300 UNITS/3 ML VIAL SC PRN (05:25)
[2022-03-06] MEDS: VANCOMYCIN 1.75 GM/350 ML BAG 1.75 GM in Premix Bag 1 BAG IVPB SCH ×2 (07:54→09:48)
[2022-03-06] MEDS ORDERED: VANCOMYCIN 1.75 GM in Sodium Chloride 0.9% 500 ML IVPB SCH (09:30)
[2022-03-06] MEDS: Amlodipine 5 MG TAB PO SCH (09:44)
[2022-03-06] MEDS: Furosemide 40 MG TAB PO SCH (09:45)
[2022-03-06] MEDS: Calcitriol 0.25 MCG CAP PO SCH (09:45)
[2022-03-06] MEDS: Gabapentin 300 MG CAP PO SCH ×2 (09:45→15:32)
[2022-03-06] MEDS: hydrALAZINE 10 MG TAB PO SCH ×2 (09:45→15:33)
[2022-03-06] MEDS: Polyethylene Glycol 3350 17 GM Packet PO SCH (09:45)
[2022-03-06] MEDS: Enoxaparin Sodium 40 MG/0.4 ML SYRINGE SC SCH (09:45)
[2022-03-06] MEDS: Aspirin 81 mg Enteric Coated Tablet PO SCH (09:45)
[2022-03-06] MEDS: diphenhydrAMINE 50 MG/ML VIAL IVP SCH ×2 (09:45→15:33)
[2022-03-06 16:40] VITALS: BP 147/70; TEMP 97.3
== END 2022-03-06 16:40 | disposition swing bed (61) | DRG 629 ==
LOC: CSHTELE 17:22
PROVIDERS: ADMIT Hospitalist; ATTEND Hospitalist
PROC: 0QBP0ZZ Excision of Left Metatarsal, Open Approach (ICD-10-PCS; principal; 2022-02-28)
PROC: 02HV33Z Insertion of Infusion Device into Superior Vena Cava, Percutaneous Approach (ICD-10-PCS; 2022-03-06)
PROC: B548ZZA Ultrasonography of Superior Vena Cava, Guidance (ICD-10-PCS; 2022-03-06)
DX: E11.69 Type 2 diabetes mellitus with other specified complication (principal); L03.116 Cellulitis of left lower limb; M86.8X7 Other osteomyelitis, ankle and foot; Z68.42 Body mass index [BMI] 45.0-49.9, adult; L02.612 Cutaneous abscess of left foot; E11.51 Type 2 diabetes mellitus with diabetic peripheral angiopathy without gangrene; E11.42 Type 2 diabetes mellitus with diabetic polyneuropathy; E11.621 Type 2 diabetes mellitus with foot ulcer; Z20.822 Contact with and (suspected) exposure to COVID-19; L97.529 Non-pressure chronic ulcer of other part of left foot with unspecified severity; E11.628 Type 2 diabetes mellitus with other skin complications; E66.01 Morbid (severe) obesity due to excess calories; I12.9 Hypertensive chronic kidney disease with stage 1 through stage 4 chronic kidney disease, or unspecified chronic kidney disease; E78.5 Hyperlipidemia, unspecified; N17.9 Acute kidney failure, unspecified; N18.30 Chronic kidney disease, stage 3 unspecified; D63.1 Anemia in chronic kidney disease; Z60.2 Problems related to living alone; G47.33 Obstructive sleep apnea (adult) (pediatric); E11.22 Type 2 diabetes mellitus with diabetic chronic kidney disease; Z89.511 Acquired absence of right leg below knee; Z83.3 Family history of diabetes mellitus; Z88.8 Allergy status to other drugs, medicaments and biological substances; Z91.018 Allergy to other foods; Z79.899 Other long term (current) drug therapy; Z79.82 Long term (current) use of aspirin; Z80.9 Family history of malignant neoplasm, unspecified; Z82.3 Family history of stroke; Z79.4 Long term (current) use of insulin
CPT/HCPCS: 36415; 36416; 36569; 80048; 80202; 83036; 85025; 85652; 86140; 87070; 87205; 94760; C1751; J0692; J1200; J1650; J1815; J2270; J2405; J2704; J3010; J3370; J3490; J7030; S0020; U0002; U0003; U0005

== ENCOUNTER 2022-11-07 08:04 | Outpatient (CLI) | payer MEDICARE | END 2022-11-07 08:05 | disposition home or self-care (01) | LOC: CSHWCC 08:04 | PROVIDERS: ATTEND Nurse Practitioner Family | DX: E11.621 Type 2 diabetes mellitus with foot ulcer (principal); L97.426 Non-pressure chronic ulcer of left heel and midfoot with bone involvement without evidence of necrosis; R60.0 Localized edema | CPT/HCPCS: 11042; 11045; 87070; 87077; 87186; 87205; 97139; G0463; 99203 ==

== ENCOUNTER 2022-11-28 13:17 | Outpatient (CLI) | payer MEDICARE | END 2022-11-28 13:18 | disposition home or self-care (01) | LOC: CSHWCC 13:17 | PROVIDERS: ATTEND Nurse Practitioner Family | DX: E11.621 Type 2 diabetes mellitus with foot ulcer (principal); L97.526 Non-pressure chronic ulcer of other part of left foot with bone involvement without evidence of necrosis; R60.0 Localized edema ==

== ENCOUNTER 2022-12-26 13:56 | Outpatient (CLI) | payer OTHER | END 2022-12-26 13:57 | disposition home or self-care (01) | LOC: CSHWCC 13:56 | PROVIDERS: ATTEND Nurse Practitioner Family | DX: E11.621 Type 2 diabetes mellitus with foot ulcer (principal); L97.426 Non-pressure chronic ulcer of left heel and midfoot with bone involvement without evidence of necrosis; R60.0 Localized edema | CPT/HCPCS: 29581 ==

== ENCOUNTER 2023-01-23 11:05 | Outpatient (CLI) | payer MEDICARE, MEDICAID | END 2023-01-23 11:06 | disposition home or self-care (01) | LOC: CSHWCC 11:05 | PROVIDERS: ATTEND Nurse Practitioner Family | DX: E11.621 Type 2 diabetes mellitus with foot ulcer (principal); L97.426 Non-pressure chronic ulcer of left heel and midfoot with bone involvement without evidence of necrosis; R60.0 Localized edema | CPT/HCPCS: 29581 ==

== ENCOUNTER 2023-03-20 13:03 | Outpatient (CLI) | payer OTHER | END 2023-03-20 13:04 | disposition home or self-care (01) | LOC: CSHWCC 13:03 | PROVIDERS: ATTEND Nurse Practitioner Family | DX: E11.621 Type 2 diabetes mellitus with foot ulcer (principal); L97.426 Non-pressure chronic ulcer of left heel and midfoot with bone involvement without evidence of necrosis; R60.0 Localized edema; M86.9 Osteomyelitis, unspecified | CPT/HCPCS: 11042; 29581 ==

== ENCOUNTER 2023-11-10 13:19 | Outpatient (CLI) | payer MEDICARE, OTHER | END 2023-11-10 13:20 | disposition home or self-care (01) | LOC: CSHWCC 13:19 | PROVIDERS: ATTEND Nurse Practitioner Family | DX: E11.621 Type 2 diabetes mellitus with foot ulcer (principal); L97.422 Non-pressure chronic ulcer of left heel and midfoot with fat layer exposed; M14.672 Charcot's joint, left ankle and foot; I89.0 Lymphedema, not elsewhere classified | CPT/HCPCS: 11042 ==

== ENCOUNTER 2023-12-01 | Outpatient (CLI) | payer MEDICARE, OTHER, MEDICAID | END 2023-12-01 14:22 | disposition home or self-care (01) | DX: E11.621 Type 2 diabetes mellitus with foot ulcer (principal); L97.422 Non-pressure chronic ulcer of left heel and midfoot with fat layer exposed; M14.672 Charcot's joint, left ankle and foot; I89.0 Lymphedema, not elsewhere classified ==